=== PATIENT | male | born 1985 | race Caucasian/White ===

== ENCOUNTER 2017-11-19 18:53 | Emergency (ER) | payer SELFPAY, OTHER ==
[2017-11-19] MEDS: SOD CHLORIDE 0.9% 1,000 ML IV (19:26)
== END 2017-11-19 19:46 | disposition left against medical advice (07) ==
LOC: E/R 18:53
DX: T40.1X1A Poisoning by heroin, accidental (unintentional), initial encounter (principal)
CPT/HCPCS: 99283